=== PATIENT | male | born 1950 | race Caucasian/White ===

== ENCOUNTER 2017-02-17 09:12 | Emergency (ER) | payer MEDICARE ==
[~2017-02-17] VITALS: Ht 182.9 cm; Wt 100.0 kg
[2017-02-17] MEDS ORDERED: ZYLOPRIM100 MG PO (10:14)
[2017-02-17 10:16] LABS: HEMATOCRIT 40.6 % (39.0-50.0); HEMOGLOBIN 14.2 g/dl (14.0-18.0); IMMATURE GRANULOCYTES 0.3 % (0.0-1.0); MEAN CORPUSCULAR HGB 33.6 pG CALC (26.0-32.0); NEUT# 5.95 thou/uL (1.82-7.42); RED BLOOD COUNT 4.23 mill/uL (4.70-6.10); RED CELL DISTRI WIDTH 13.4 % (11.5-15.5)
[2017-02-17] MEDS ORDERED: TRULICITY0.75 MG/0. SC (10:16)
[2017-02-17] MEDS ORDERED: METFORMIN500 M2 PO (10:17)
[2017-02-17] MEDS ORDERED: MEVACOR10 MG PO (10:17)
[2017-02-17 10:30] LABS: ANION GAP 14 (6-22 (CALC)); BUN 19 mg/dL (8-23); BUN/CREATININE RATIO 22 (12-20 (CALC)); CALCIUM 9.4 mg/dL (8.4-10.2); CARBON DIOXIDE 25 mmol/l (22-30); CHLORIDE 106 mmol/l (95-108); CREATININE 0.9 mg/dL (0.7-1.3); GFR > 60 ML/MIN (>=60 (CALC)); GFR FOR AFR.AMER. > 60 ML/MIN (>=60 (CALC)); GLUCOSE 129 mg/dL (82-115); SODIUM 141 mmol/l (137-146)
[2017-02-17 11:19] VITALS: BP 122/68
[2017-02-17] MEDS ORDERED: TRAMADOL HYDROC50 MG PO (11:19)
== END 2017-02-17 11:23 | disposition home or self-care (01) ==
LOC: ED 09:12
PROVIDERS: Emergency Medicine
DX: S20.212A Contusion of left front wall of thorax, initial encounter (principal); M10.9 Gout, unspecified; E11.9 Type 2 diabetes mellitus without complications; R94.31 Abnormal electrocardiogram [ECG] [EKG]; W01.0XXA Fall on same level from slipping, tripping and stumbling without subsequent striking against object, initial encounter

== ENCOUNTER 2017-07-31 00:23 | Emergency (ER) | payer MEDICARE ==
[~2017-07-31] VITALS: Ht 182.9 cm; Wt 100.0 kg
[~2017-07-31 00:23] MED LIST: METFORMIN500 M2 PO; MEVACOR10 MG PO; TRAMADOL HYDROC50 MG PO; TRULICITY0.75 MG/0. SC; ZYLOPRIM100 MG PO
[2017-07-31 00:50] LABS: HEMATOCRIT 41.4 % (39.0-50.0); HEMOGLOBIN 14.8 g/dl (14.0-18.0); IMMATURE GRANULOCYTES 0.4 % (0.0-1.0); MEAN CELL VOLUME 94.7 fL CALC (80.0-100.0); MEAN CORPUSCULAR HGB 33.9 pG CALC (26.0-32.0); MEAN CORPUSCULAR HGB CONC 35.7 g/L CALC (32.0-36.0); NEUT# 5.93 thou/uL (1.82-7.42); RED BLOOD COUNT 4.37 mill/uL (4.70-6.10); RED CELL DISTRI WIDTH 12.2 % (11.5-15.5)
[2017-07-31 01:00] LABS: ALBUMIN 4.5 g/dL (3.2-5.0); ALKALINE PHOSPHATASE 71 u/l (38-126); ANION GAP 18 (6-22 (CALC)); BUN 25 mg/dL (8-23); BUN/CREATININE RATIO 22 (12-20 (CALC)); CALCIUM 9.8 mg/dL (8.4-10.2); CARBON DIOXIDE 27 mmol/l (22-30); CHLORIDE 101 mmol/l (95-108); CREATININE 1.1 mg/dL (0.7-1.3); GFR > 60 ML/MIN (>=60 (CALC)); GFR FOR AFR.AMER. > 60 ML/MIN (>=60 (CALC)); GLUCOSE 146 mg/dL (82-115); POTASSIUM 3.9 mmol/l (3.5-5.1); SGOT/AST 26 u/l (19-48); SGPT/ALT 34 u/l (11-66); SODIUM 143 mmol/l (137-146); TOTAL PROTEIN 7.5 g/dL (6.3-8.2)
[2017-07-31 01:08] LABS: MYOGLOBIN 32 ng/mL (0 - 121)
[2017-07-31 01:09] LABS: ACT PARTIAL THROMBO TIME 26.7 SECONDS (20.0-32.5); PROTHROMBIN TIME 10.7 SECONDS (9.0-12.5)
[2017-07-31 01:30] VITALS: BP 132/88
== END 2017-07-31 01:30 | disposition short-term general hospital (02) ==
LOC: ED 00:23
PROVIDERS: Emergency Medicine
DX: I21.A9 Other myocardial infarction type (principal); I10 Essential (primary) hypertension